=== PATIENT | male | born 1975 | race Caucasian/White ===

== ENCOUNTER 2016-07-31 08:03 | Emergency (ER) | payer OTHER ==
[~2016-07-31] VITALS: Ht 190.5 cm; Wt 142.6 kg
[~2016-07-31 08:03] MED LIST: AMLODIPINE BESYL5 MG PO; AUGMENTIN875 MG PO; BACTRIM,SEPT1 TABLET PO; COZAAR50 MG PO; FIORICET 50-301 EACH PO; FLEXERIL10 MG PO; GLUCOPHAGE500 MG PO; HYDROCHLOROTHIA25 MG PO; HYDROCODON-ACE1 EAC7 PO; IBUPROFEN600 MG PO; K-DUR20 MEQ PO; KEFLEX500 MG PO; MOBIC7.5 MG PO; MOTRIN600 MG PO; MOTRIN800 MG PO; NAPROSYN500 MG PO; NAPROXEN500 MG PO; NORCO 5/3251 TABLET PO; OXYBUTYNIN CHLOR5 M1 PO; OXYBUTYNIN CHLOR5 MG PO; PATANOL OP100 DROP/5 RIGHT EYE; PEN-VEE K,VEET500 MG PO; PERCOCET 5/31 TABLET PO; TESSALON PERLE100 MG PO; TESSALON200 MG PO; TRAMADOL HCL50 MG PO; ULTRAM50 MG PO; VENTOLIN HFA18 GM IH; ZITHROMAX Z-PA250 MG PO; ZOFRAN4 MG PO
[2016-07-31 08:44] LABS: HEMATOCRIT 47.4 % (38.0-50.0); MCH 29.7 PG (29.0-34.0); MCHC 33.8 G/DL (30.0-36.0); MCV 87.9 FL (86-99); MEAN PLAT.VOLUME 11.1 uM^3 (9.0-12.4); PLATELET COUNT 247 K/uL (156-360); RBC DIS.WIDTH-CV 12.6 % (11.8-14.6); RED BLOOD COUNT 5.39 M/uL (4.00-5.50); WHITE BLOOD COUNT 15.2 K/uL (4.1-10.2)
[2016-07-31 08:57] LABS: CHLORIDE 100 mEq/L (99-109); POTASSIUM 3.7 mEq/L (3.7-5.4); SODIUM 135 mEq/L (136-147)
[2016-07-31 08:59] LABS: GLUCOSE 150 mg/dL (70-99)
[2016-07-31 09:01] LABS: ANION GAP 13 MEQ/L (2-14); TOTAL BILIRUBIN 0.8 mg/dL (0.0-1.0)
[2016-07-31 09:03] LABS: ALKALINE PHOSPHATASE 79 IU/L (3-129); GFR ESTIMATE (CALCULATED) > 59 mL/min/
[2016-07-31 09:04] LABS: UREA NITROGEN (BUN) 11 mg/dL (9-23)
[2016-07-31 09:13] LABS: ADD MIUA? YES; BILIRUBIN NEGATIVE; BLOOD TRACE; COLOR DK YELLOW ((YELLOW)); GLUCOSE (STRIP) NEGATIVE; KETONES NEGATIVE; LEUKOCYTES NEGATIVE; NITRITE NEGATIVE; PROTEIN (STRIP) >=300; SPECIFIC GRAVITY 1.033 (1.000-1.030); UROBILINOGEN 0.2 MG/DL (0.2-1.0)
[2016-07-31 09:29] LABS: RED BLOOD CELLS 0-5 /HPF (0-5); WHITE BLOOD CELLS 0-5 /HPF (0-5)
[2016-07-31 09:30] LABS: BACTERIA 1+; EPITHELIAL CELLS 1+; MUCUS 3+; UCUL ADDED? NO
[2016-07-31 09:31] LABS: CASTS NONE SEEN /LPF; CRYSTALS NONE SEEN
[2016-07-31] MEDS ORDERED: IMODIUM MS REL1 EACH PO (09:36)
[2016-07-31] MEDS ORDERED: ZOFRAN ODT4 MG PO (09:36)
[2016-07-31 09:40] VITALS: BP 118/68
== END 2016-07-31 09:59 | disposition home or self-care (01) ==
LOC: EME 08:03
DX: K52.9 Noninfective gastroenteritis and colitis, unspecified (principal); E11.9 Type 2 diabetes mellitus without complications; I10 Essential (primary) hypertension; Z79.84 Long term (current) use of oral hypoglycemic drugs
CPT/HCPCS: 80053; 81003; 83630; 85027; 99281; 99284; J2405; J7030

== ENCOUNTER 2016-09-14 04:10 | Emergency (ER) | payer OTHER ==
[~2016-09-14] VITALS: Ht 190.5 cm; Wt 149.2 kg
[~2016-09-14 04:10] MED LIST changes: +IMODIUM MS REL1 EACH PO; +ZOFRAN ODT4 MG PO
[2016-09-14] MEDS ORDERED: VENTOLIN HFA18 GM IH (05:30)
[2016-09-14] MEDS ORDERED: MEDROL DOSEPAK4 MG PO (05:30)
[2016-09-14 05:59] VITALS: BP 127/79
== END 2016-09-14 06:03 | disposition home or self-care (01) ==
LOC: EME → EDBD 04:10 → EME 06:03
DX: J98.01 Acute bronchospasm (principal); E11.9 Type 2 diabetes mellitus without complications; I10 Essential (primary) hypertension; Z79.84 Long term (current) use of oral hypoglycemic drugs
CPT/HCPCS: 71010; 94640; 94640 76; 99281; 99284; J2930; J7512; J7644

== ENCOUNTER → 2016-09-22 | Outpatient (CLI) | payer OTHER ==
[~2016-09-22] MED LIST changes: +CLARITIN,ALAVAR10 MG PO; +MEDROL DOSEPAK4 MG PO; +PREDNISONE20 MG PO
== END | disposition home or self-care (01) ==
LOC: RES 08:47
DX: R94.2 Abnormal results of pulmonary function studies (principal); J45.909 Unspecified asthma, uncomplicated
CPT/HCPCS: 94060; 94726; 94729

== ENCOUNTER 2016-10-05 06:59 | Emergency (ER) | payer OTHER ==
[~2016-10-05] VITALS: Ht 190.5 cm; Wt 147.6 kg
[~2016-10-05 06:59] MED LIST changes: -CLARITIN,ALAVAR10 MG PO; -PREDNISONE20 MG PO
[2016-10-05 08:33] LABS: BASOPHIL COUNT 0.1 K/uL (0-0.1); EOSINOPHIL (%) 6.8 % (0-5); EOSINOPHIL COUNT 0.6 K/uL (0-0.3); HEMATOCRIT 45.1 % (38.0-50.0); IMMATURE GRANULOCYTE (%) 0.2 % (0.0-0.7); INSTRUMENT ABS NEUTROPHIL CT 5.5 K/uL; LYMPHOCYTE COUNT 2.2 K/uL (1.0-2.8); MCH 29.4 PG (29.0-34.0); MCHC 33.3 G/DL (30.0-36.0); MCV 88.3 FL (86-99); MEAN PLAT.VOLUME 10.9 uM^3 (9.0-12.4); MONOCYTE (%) 5.6 % (3-12); MONOCYTE COUNT 0.5 K/uL (0-0.8); NEUTROPHIL (%) 61.8 % (45-76); NEUTROPHIL COUNT 5.5 K/uL (1.8-6.4); PLATELET COUNT 248 K/uL (156-360); RBC DIS.WIDTH-CV 12.3 % (11.8-14.6); RBC DIS.WIDTH-SD 39.8 % (39-53); RED BLOOD COUNT 5.11 M/uL (4.00-5.50)
[2016-10-05 08:42] LABS: D-DIMER ELISA 0.25 mg/L FEU (< 0.57)
[2016-10-05 08:42] LABS: CHLORIDE 106 mEq/L (99-109); POTASSIUM 4.4 mEq/L (3.7-5.4); SODIUM 142 mEq/L (136-147)
[2016-10-05 08:44] LABS: GLUCOSE 145 mg/dL (70-99)
[2016-10-05 08:45] LABS: ANION GAP 11 MEQ/L (2-14)
[2016-10-05 08:48] LABS: GFR ESTIMATE (CALCULATED) > 59 mL/min/
[2016-10-05 08:49] LABS: UREA NITROGEN (BUN) 14 mg/dL (9-23)
[2016-10-05] MEDS ORDERED: PREDNISONE20 MG PO (09:16)
[2016-10-05] MEDS ORDERED: CLARITIN,ALAVAR10 MG PO (09:16)
[2016-10-05] MEDS ORDERED: VENTOLIN HFA18 GM IH (09:16)
[2016-10-05 09:52] VITALS: BP 120/80
== END 2016-10-05 10:05 | disposition home or self-care (01) ==
LOC: EME 06:59
PROVIDERS: Physician Assistant
DX: J20.9 Acute bronchitis, unspecified (principal); J45.909 Unspecified asthma, uncomplicated; E11.9 Type 2 diabetes mellitus without complications; I10 Essential (primary) hypertension
CPT/HCPCS: 71020; 80048; 85025; 85379; 94640; 99281; 99284; J7512

== ENCOUNTER 2016-10-30 21:02 | Emergency (ER) | payer OTHER ==
[~2016-10-30] VITALS: Ht 190.5 cm; Wt 152.3 kg
[~2016-10-30 21:02] MED LIST changes: +CLARITIN,ALAVAR10 MG PO; +PREDNISONE20 MG PO
[2016-10-30 22:49] VITALS: BP 155/106
== END 2016-10-30 23:01 | disposition home or self-care (01) ==
LOC: EXP 21:02 → EME 21:02 → EXP 23:01
PROC: 0HQFXZZ Repair Right Hand Skin, External Approach (ICD-10-PCS; principal; 2016-10-30)
DX: S61.411A Laceration without foreign body of right hand, initial encounter (principal); W26.0XXA Contact with knife, initial encounter; Y93.G1 Activity, food preparation and clean up
CPT/HCPCS: 73130; 99281; 99284; S0020

== ENCOUNTER 2017-01-31 14:13 | Emergency (ER) | payer OTHER ==
[~2017-01-31] VITALS: Ht 190.5 cm; Wt 148.1 kg
[2017-01-31 16:54] LABS: HEMATOCRIT 42.8 % (38.0-50.0); MCH 29.2 PG (29.0-34.0); MCHC 33.4 G/DL (30.0-36.0); MCV 87.5 FL (86-99); MEAN PLAT.VOLUME 11.4 uM^3 (9.0-12.4); PLATELET COUNT 301 K/uL (156-360); RBC DIS.WIDTH-CV 11.9 % (11.8-14.6); RED BLOOD COUNT 4.89 M/uL (4.00-5.50); WHITE BLOOD COUNT 10.4 K/uL (4.1-10.2)
[2017-01-31 17:02] LABS: CHLORIDE 104 mEq/L (99-109); POTASSIUM 3.8 mEq/L (3.7-5.4); SODIUM 137 mEq/L (136-147)
[2017-01-31 17:04] LABS: GLUCOSE 120 mg/dL (70-99)
[2017-01-31 17:06] LABS: ANION GAP 10 MEQ/L (2-14)
[2017-01-31 17:08] LABS: GFR ESTIMATE (CALCULATED) > 59 mL/min/
[2017-01-31 17:09] LABS: UREA NITROGEN (BUN) 10 mg/dL (9-23)
[2017-01-31 17:13] LABS: TROP-I INTERPRETATION NEGATIVE; TROPONIN-I < 0.01 ng/mL (0.0-0.30)
[2017-01-31 18:53] LABS: TROP-I INTERPRETATION NEGATIVE; TROPONIN-I < 0.01 ng/mL (0.0-0.30)
[2017-01-31] MEDS ORDERED: FLEXERIL10 MG PO (19:13)
[2017-01-31] MEDS ORDERED: NAPROXEN500 MG PO (19:13)
[2017-01-31 19:55] VITALS: BP 148/71
== END 2017-01-31 19:56 | disposition home or self-care (01) ==
LOC: EXP 14:13 → EME 14:13 → EXP 19:56
PROVIDERS: Physician Assistant Medical
DX: M62.838 Other muscle spasm (principal); M79.622 Pain in left upper arm; R07.9 Chest pain, unspecified; J45.909 Unspecified asthma, uncomplicated; I10 Essential (primary) hypertension; E11.9 Type 2 diabetes mellitus without complications; Z79.84 Long term (current) use of oral hypoglycemic drugs; Z83.2 Family history of diseases of the blood and blood-forming organs and certain disorders involving the immune mechanism
CPT/HCPCS: 80048 91; 84484; 85027; 93005; 93971; 99281; 99284

== ENCOUNTER 2017-02-04 07:13 | Emergency (ER) | payer OTHER ==
[~2017-02-04] VITALS: Ht 188 cm; Wt 148.0 kg
[2017-02-04 07:39] LABS: POINT-OF-CARE METER ID UU14100415
[2017-02-04 07:53] LABS: HEMATOCRIT 39.5 % (38.0-50.0); MCH 29.4 PG (29.0-34.0); MCHC 33.4 G/DL (30.0-36.0); MEAN PLAT.VOLUME 11.6 uM^3 (9.0-12.4); PLATELET COUNT 270 K/uL (156-360); RBC DIS.WIDTH-CV 11.8 % (11.8-14.6); RBC DIS.WIDTH-SD 37.9 % (39-53); RED BLOOD COUNT 4.49 M/uL (4.00-5.50); WHITE BLOOD COUNT 9.4 K/uL (4.1-10.2)
[2017-02-04 08:12] LABS: CHLORIDE 103 mEq/L (99-109); POTASSIUM 3.5 mEq/L (3.7-5.4); SODIUM 137 mEq/L (136-147)
[2017-02-04 08:13] LABS: GLUCOSE 148 mg/dL (70-99)
[2017-02-04 08:15] LABS: ANION GAP 11 MEQ/L (2-14)
[2017-02-04 08:17] LABS: GFR ESTIMATE (CALCULATED) > 59 mL/min/
[2017-02-04 08:18] LABS: UREA NITROGEN (BUN) 11 mg/dL (9-23)
[2017-02-04 12:30] VITALS: BP 115/65
== END 2017-02-04 12:48 | disposition home or self-care (01) ==
LOC: EME 07:13
PROVIDERS: Emergency Medicine
DX: E86.0 Dehydration (principal); T67.5XXA Heat exhaustion, unspecified, initial encounter; E11.9 Type 2 diabetes mellitus without complications; I10 Essential (primary) hypertension; Z79.84 Long term (current) use of oral hypoglycemic drugs
CPT/HCPCS: 71020; 80048; 82948; 85027; 99281; 99285; J7030

== ENCOUNTER 2017-03-23 23:24 | Emergency (ER) | payer OTHER ==
[~2017-03-23] VITALS: Ht 190.5 cm; Wt 156.0 kg
[2017-03-24] MEDS ORDERED: CLEOCIN300 MG PO (01:35)
[2017-03-24 02:06] VITALS: BP 138/76
== END 2017-03-24 02:07 | disposition home or self-care (01) ==
LOC: EME 23:24
DX: E11.628 Type 2 diabetes mellitus with other skin complications (principal); L03.115 Cellulitis of right lower limb; I10 Essential (primary) hypertension; Z79.84 Long term (current) use of oral hypoglycemic drugs
CPT/HCPCS: 73610; 73630; 99281; 99284

== ENCOUNTER 2017-04-28 20:56 | Emergency (ER) | payer OTHER ==
[~2017-04-28] VITALS: Ht 190.5 cm; Wt 156.3 kg
[~2017-04-28 20:56] MED LIST changes: +CLEOCIN300 MG PO
[2017-04-28 22:05] LABS: HEMATOCRIT 38.2 % (38.0-50.0); MCH 28.1 PG (29.0-34.0); MCHC 32.7 G/DL (30.0-36.0); MCV 85.8 FL (86-99); MEAN PLAT.VOLUME 11.2 uM^3 (9.0-12.4); PLATELET COUNT 234 K/uL (156-360); RBC DIS.WIDTH-CV 12.8 % (11.8-14.6); RBC DIS.WIDTH-SD 39.6 % (39-53); RED BLOOD COUNT 4.45 M/uL (4.00-5.50); WHITE BLOOD COUNT 9.1 K/uL (4.1-10.2)
[2017-04-28 22:09] LABS: ADD MIUA? NO; BILIRUBIN NEGATIVE; BLOOD NEGATIVE; COLOR STRAW ((YELLOW)); GLUCOSE (STRIP) NEGATIVE; KETONES 5; LEUKOCYTES NEGATIVE; NITRITE NEGATIVE; PROTEIN (STRIP) NEGATIVE; SPECIFIC GRAVITY 1.008 (1.000-1.030); UCUL ADDED? NO; UROBILINOGEN 0.2 MG/DL (0.2-1.0)
[2017-04-28 22:32] LABS: CHLORIDE 103 mEq/L (99-109); SODIUM 138 mEq/L (136-147)
[2017-04-28 22:34] LABS: GLUCOSE 127 mg/dL (70-99)
[2017-04-28 22:36] LABS: ANION GAP 8 MEQ/L (2-14); TOTAL BILIRUBIN 0.9 mg/dL (0.0-1.0)
[2017-04-28 22:38] LABS: ALKALINE PHOSPHATASE 70 IU/L (3-129); GFR ESTIMATE (CALCULATED) > 59 mL/min/
[2017-04-28 22:39] LABS: UREA NITROGEN (BUN) 8 mg/dL (9-23)
[2017-04-28 22:41] LABS: LIPASE 9 U/L (1.0-51.0)
[2017-04-29] MEDS ORDERED: ZOFRAN4 MG PO (00:54)
[2017-04-29] MEDS ORDERED: BENTYL20 MG PO (00:54)
[2017-04-29 01:26] VITALS: BP 138/76
== END 2017-04-29 01:28 | disposition home or self-care (01) ==
LOC: EME 20:56
PROVIDERS: Emergency Medicine
DX: R10.84 Generalized abdominal pain (principal); R53.1 Weakness; E87.6 Hypokalemia; R11.0 Nausea; J45.909 Unspecified asthma, uncomplicated; I10 Essential (primary) hypertension; E11.9 Type 2 diabetes mellitus without complications; Z79.84 Long term (current) use of oral hypoglycemic drugs
CPT/HCPCS: 70450; 74177; 80053; 81003; 83690; 85027; 99281; 99285; J2405; J7030

== ENCOUNTER 2017-05-10 03:22 | Emergency (ER) | payer OTHER ==
[~2017-05-10] VITALS: Ht 190.5 cm; Wt 141.8 kg
[~2017-05-10 03:22] MED LIST changes: +BENTYL20 MG PO
[2017-05-10 04:10] LABS: HEMATOCRIT 42.4 % (38.0-50.0); MCH 28.4 PG (29.0-34.0); MCHC 32.3 G/DL (30.0-36.0); PLATELET COUNT 190 K/uL (156-360); RBC DIS.WIDTH-CV 12.9 % (11.8-14.6); RBC DIS.WIDTH-SD 41.3 % (39-53); RED BLOOD COUNT 4.82 M/uL (4.00-5.50); WHITE BLOOD COUNT 6.5 K/uL (4.1-10.2)
[2017-05-10 04:39] LABS: CHLORIDE 106 mEq/L (99-109); POTASSIUM 5.2 mEq/L (3.7-5.4); SODIUM 139 mEq/L (136-147)
[2017-05-10 04:41] LABS: GLUCOSE 110 mg/dL (70-99)
[2017-05-10 04:42] LABS: ANION GAP 11 MEQ/L (2-14)
[2017-05-10 04:45] LABS: GFR ESTIMATE (CALCULATED) > 59 mL/min/; UREA NITROGEN (BUN) 7 mg/dL (9-23)
[2017-05-10 04:52] LABS: INFLUENZA A VIRAL ANTIGEN NEGATIVE; INFLUENZA B VIRAL ANTIGEN NEGATIVE
[2017-05-10 05:07] VITALS: BP 139/90
== END 2017-05-10 05:25 | disposition home or self-care (01) ==
LOC: EME 03:22
PROVIDERS: Emergency Medicine
DX: B34.9 Viral infection, unspecified (principal); I10 Essential (primary) hypertension; J45.909 Unspecified asthma, uncomplicated; E11.9 Type 2 diabetes mellitus without complications; Z79.84 Long term (current) use of oral hypoglycemic drugs
CPT/HCPCS: 71020; 80048; 85027; 87502; 99281; 99283